=== PATIENT | female | born 1990 | race Caucasian/White ===

== ENCOUNTER 2017-09-14 02:27 | Inpatient (IN) | payer OTHER ==
[2017-09-14 03:00] LABS: APPEARANCE,URINE CLEAR; BILIRUBIN,URINE NEGATIVE (NEGATIVE); COLOR,URINE STRAW; GLUCOSE, URINE NEGATIVE (NEGATIVE); KETONES,URINE NEGATIVE (NEGATIVE); LEUKOCYTE ESTERASE,URINE SMALL (NEGATIVE); NITRITE,URINE NEGATIVE (NEGATIVE); PROTEIN,URINE NEGATIVE (NEGATIVE); URINE SPECIFIC GRAVITY 1.008; UROBILINOGEN,URINE NEGATIVE mg/dL (<2.0)
[2017-09-14] MEDS ORDERED: RINGERS SOLUTION,LACTATED 1,000 ML IV ONE (03:01)
[2017-09-14] MEDS ORDERED: RINGERS SOLUTION,LACTATED 1,000 ML IV PRN (03:01)
[2017-09-14] MEDS ORDERED: BUPIVACAINE HCL 0.25 % INJ/PF (2.5 MG/1 ML) 30 ML VIAL INFIL ONE (03:02)
[2017-09-14] MEDS ORDERED: BENZOIN/ALOE VERA/STORAX/TOLU TINCTURE 60 ML TP PRN (03:02)
[2017-09-14] MEDS ORDERED: FENTANYL/BUPIVACAINE/NS/PF 200 MCG/100 ML RTUINJ EPI PRN (03:02)
[2017-09-14] MEDS ORDERED: EPHEDRINE SULFATE INJ 50 MG/1 ML AMPULE ONE (03:16)
[2017-09-14] MEDS ORDERED: MISOPROSTOL 0.2 MG TABLET ONE (03:16)
[2017-09-14 03:17] LABS: URINE AMPHETAMINES SCREEN NEGATIVE; URINE BARBITURATES SCREEN NEGATIVE; URINE BENZODIAZEPINES SCREEN NEGATIVE; URINE COCAINE SCREEN NEGATIVE; URINE MARIJUANA (THC) SCREEN NEGATIVE; URINE METHADONE SCREEN NEGATIVE; URINE PHENCYCLIDINE SCREEN NEGATIVE
[2017-09-14] MEDS ORDERED: LIDOCAINE 1% INJ-PF (10 MG/ML) 30 ML SDV ONE (03:17)
[2017-09-14] MEDS ORDERED: OXYTOCIN/NORMAL SALINE 20 UNIT/1,000 ML RTUINJ ONE (03:17)
[2017-09-14] MEDS ORDERED: BUPIVACAINE HCL 0.25 % INJ/PF (2.5 MG/1 ML) 30 ML VIAL ONE (03:17)
[2017-09-14] MEDS ORDERED: FENTANYL/BUPIVACAINE/NS/PF 200 MCG/100 ML RTUINJ EPI ONE (03:17)
[2017-09-14 03:35] LABS: ABSOLUTE EOSINOPHILS # (AUTO) 0.1 10^3/uL (0.0-0.6); ABSOLUTE LYMPHOCYTES (AUTO) 3.6 10^3/uL (0.5-4.7); ABSOLUTE MONOCYTES (AUTO) 0.8 10^3/uL (0.1-1.4); ABSOLUTE NEUT (AUTO) 10.4 10^3/uL (1.7-8.2); BASOPHILS % (AUTO) 0.2 % (0-2); EOSINOPHILS % (AUTO) 0.5 % (0-6); HEMOGLOBIN 12.4 g/dL (12.0-15.5); LYMPHOCYTES % (AUTO) 24.2 % (13-45); MEAN CORPUSCULAR HEMOGLOBIN 29.1 pg (27.0-33.4); MEAN CORPUSCULAR HGB CONC 34.5 g/dL (32.0-36.0); MEAN CORPUSCULAR VOLUME 84 fl (80-97); MONOCYTES % (AUTO) 5.1 % (3-13); PLATELET COUNT 213 10^3/uL (150-450); RED BLOOD COUNT 4.26 10^6/uL (3.72-5.28); RED CELL DISTRIBUTION WIDTH 13.1 % (11.5-14.0); TOTAL CELLS COUNTED % (AUTO) 100 %; WHITE BLOOD COUNT 14.9 10^3/uL (4.0-10.5)
[2017-09-14] MEDS ORDERED: DIPH/PERTUSS(ACELL)/TETANUS VAC/PF 0.5 ML SYR (>=10YO) IM PRN (07:51)
[2017-09-14] MEDS ORDERED: DIPHENHYDRAMINE HCL 25 MG CAPSULE PO PRN (07:51)
[2017-09-14] MEDS ORDERED: HYDROCODONE/ACETAMINOPHEN 5-325 MG TABLET PO PRN (07:51)
[2017-09-14] MEDS ORDERED: ACETAMINOPHEN WITH CODEINE #3 TABLET PO PRN (07:51)
[2017-09-14] MEDS ORDERED: GLYCERIN/WITCH HAZEL LEAF 1 EACH MED..PAD TP PRN (07:51)
[2017-09-14] MEDS ORDERED: BENZOCAINE/MENTHOL AEROSOL SPRAY 56 ML TOP PRN (07:51)
[2017-09-14] MEDS ORDERED: MEASLES,MUMPS&RUBELLA VACC/PF 0.5 ML VIAL SUBCUT PRN (07:51)
[2017-09-14] MEDS ORDERED: PSEUDOEPHEDRINE HCL 30 MG TABLET PO PRN (07:51)
[2017-09-14] MEDS ORDERED: PROMETHAZINE HCL INJ 25 MG/1 ML VIAL IV PRN (07:51)
[2017-09-14] MEDS ORDERED: ZOLPIDEM TARTRATE 5 MG TABLET PO PRN (07:51)
[2017-09-14] MEDS ORDERED: PROMETHAZINE HCL 25 MG SUPP.RECT PR PRN (07:51)
[2017-09-14] MEDS ORDERED: ACETAMINOPHEN 650 MG SUPP.RECT PR PRN (07:51)
[2017-09-14] MEDS ORDERED: DIBUCAINE 1% OINTMENT 28 GM TP PRN (07:51)
[2017-09-14] MEDS ORDERED: NA PHOS,M-B/NA PHOS,DI-BA (ADULT) 133 ML ENEMA PR PRN (07:51)
[2017-09-14] MEDS ORDERED: PROMETHAZINE HCL 25 MG TABLET PO PRN (07:51)
[2017-09-14] MEDS ORDERED: MAGNESIUM HYDROXIDE SUSP 30 ML UDCUP PO PRN (07:51)
[2017-09-14] MEDS ORDERED: OXYTOCIN/NORMAL SALINE 20 UNIT/1,000 ML RTUINJ IV PRN (07:51)
[2017-09-14] MEDS ORDERED: DIPHENHYDRAMINE HCL 50 MG/ML VIAL IV ONE (08:17)
[2017-09-14] MEDS ORDERED: DIPHENHYDRAMINE HCL 25 MG CAPSULE ONE (08:22)
[2017-09-14] MEDS ORDERED: ONDANSETRON HCL INJ/PF 4 MG/2 ML SDV ONE (09:52)
--- NOTE | 2017-09-14 10:58 | Admission Physical ---
Datetime Report Generated by CPN: 09/14/2017 10:58 CURRENT ADMISSION Chief Complaint: Uterine Contractions Indication for Induction: Not Applicable Indication for Induction: Term, Intrauterine Admit Plan: Initiate Labor Protocol ALLERGIES Medication Allergies: No Medication Allergies: No Known Allergies (09/14/2017) Latex: No Latex Allergies Food Allergies: N/A Environmental Allergies: N/A OBSTETRICAL HISTORY EDC: 09/19/2017 00:00 : 2 Para: 1 Term: 1 : 0 SAB: 0 IAB: 0 Ectopic: 0 Livin Cesareans: 0 VBACs: 0 Multiple Births: 0 Gestational Diabetes: No Rh Sensitization: No Incompetent Cervix: No JOHN: No Infertility: No ART Treatment: No Uterine Anomaly: No IUGR: No Hx Previous C/S: No Macrosomia: No Hx Loss/Stillborn: No PIH: No Hx : No Placenta Previa/Abruption: No Depression/PP Depression: No PTL/PROM: No Post Hemorrhage: No Current Procedures: Ultrasound; NST Obstetrical History Comments: G1- epidural 2013 G2- current SEE RECORDS Alcohol: No Marijuana : No Cocaine: No Other Illicit Drugs: No Cigarettes: Never Smoker. 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 Surgery: No Heart Disease: No Hosp/Surgery: No Autoimmune Disorder: No Anesthetic Complications: No Kidney Disease: No Abnormal Pap Smear: No Neuro/Epilepsy: No Psychiatric Disorders: No Other Medical Diseases: No Hepatitis/Liver Disease: No Significant Family History: No Varicosities/Phlebitis: No Trauma/Violence : No Thyroid Dysfunction: No Medical History Comments: breast augmentation INFECTIOUS HISTORY Gonorrhea: No Genital Herpes: No Chlamydia: No Tuberculosis: No Syphilis: No Hepatitis: No HIV/AIDS Exposure: No Rash or Viral Illness: No HPV: No PHYSICAL EXAM General: Normal HEENT: Normal Neurologic: Normal Thyroid: Normal Heart: Normal Lungs: Normal Breast: Deferred Back: Normal Abdomen: Normal Genitourinary Exam: Normal Extremities: Normal DTRs: Normal Pelvic Type: Adequate Vital Signs: Reviewed VAGINAL EXAM Dilatation: 4 MEMBRANES Pooling: Negative Membranes: Intact FETUS A EGA: 39.2 Monitoring: External US PLANS FOR LABOR AND DELIVERY Labor and Delivery: None Pain Management: Epidural Feeding Preference: Formula Benefit of Breast Feed Discussed: Yes Circumcision: N/A INFORMED CONSENT Signature: with User ID: [email or web address]
[2017-09-14] MEDS: FERROUS SULFATE 325 MG TABLET PO SCH ×2 (13:17→17:46)
[2017-09-14] MEDS: PRENATAL VITAMIN W DHA CAPSULE PO SCH (13:17)
[2017-09-14] MEDS: FAMOTIDINE 20 MG TABLET PO SCH ×2 (13:17→21:33)
[2017-09-14] MEDS: SENNOSIDES/DOCUSATE 8.6-50 MG 1 EACH TABLET PO SCH (13:17)
[2017-09-14] MEDS: DOCUSATE SODIUM 100 MG CAPSULE PO SCH ×2 (13:17→17:46)
[2017-09-14] MEDS: IBUPROFEN 800 MG TABLET PO SCH ×2 (14:03→21:33)
[2017-09-15] MEDS: IBUPROFEN 800 MG TABLET PO SCH ×3 (05:15→22:19)
--- NOTE | 2017-09-15 07:48 | Delivery Summary ---
Del Sum A-C Datetime Report Generated by CPN: 09/15/2017 07:48 DELIVERY PERSONNEL DELIVERY PERSONNEL: [id number] Delivery Doctor:: Beka Payne MD Labor and Delivery Nurse:: DANICA Riley Labor and Delivery Nurse:: Genet Ortiz RN Crop Farm Helper/AUTOMOBILE TESTER: Karolina BlountCARLOS II Crop Farm Helper/AUTOMOBILE TESTER: Genet Layne, MEDIA CENTER DIRECTOR SCHOOL MATERNAL INFORMATION Delivery Anesthesia: Epidural Medications After Delivery: Pitocin Bolus-Please Comment; Pitocin Drip 20 Units/1000ml NSS Estimated Blood Loss (ml): 150 Maternal Complications: None Provider Comments: viable female 7:28am apgars 9/9 intact placenta with 3 vessel cord LABOR SUMMARY EDC: 09/19/2017 00:00 No. Babies in Womb: 1 Attempted: No Labor Anesthesia: Epidural LABOR INFORMATION Reason for Induction: Not Applicable Onset of Labor: 09/13/2017 23:00 Complete Dilatation: 09/14/2017 06:37 Oxytocin: N/A Group B Beta Strep: Negative Antibiotics # of Doses: 0 Steroids Given: None Reason Steroids Not Administered: Not Applicable MEMBRANES Membranes Rupture Method: Spontaneous Rupture of Membranes: 09/14/2017 06:29 Length of Rupture (hr): 0.98 Amniotic Fluid Color: Clear Amniotic Fluid Amount: Small STAGES OF LABOR Stage 1 hr: 7 Stage 1 min: 37 Stage 2 hr: 0 Stage 2 min: 51 Stage 3 hr: 0 Stage 3 min: 2 Total Time in Labor hr: 8 Total Time in Labor min: 30 VAGINAL DELIVERY Episiotomy: None Laceration #1: None Laceration Extension #1: N/A Laceration Repair: Not Applicable Sponge Count Correct: N/A Sharps Count Correct: N/A BABY A INFORMATION Delivery Date/Time: 09/14/2017 07:28 Method of Delivery: Vaginal Method of Delivery: Vaginal Born in Route : No : N/A Forceps: N/A Vacuum Extraction: N/A Shoulder Dystocia : No PRESENTATION/POSITION BABY A Presentation: Cephalic Cephalic Presentation: N/A Vertex Position: Left Occipital Anterior Breech Presentation: N/A PLACENTA INFORMATION BABY A Placenta Delivery Time : 09/14/2017 07:30 Placenta Method of Delivery: Spontaneous Placenta Method of Delivery: Spontaneous Placenta Status: Delivered SCORES BABY A Heart Rate 1 min: >100 bpm Resp Effort 1 min: Good Cry Reflex Irritability 1 min: Cough or Sneeze or Pulls Away Muscle Tone 1 min: Active Motion Color 1 min: Body [place], Extremities Blue Resuscitation Effort 1 min: Tactile Stimulation SCORE 1 MIN: 9 Heart Rate 5 min: >100 bpm Resp Effort 5 min: Good Cry Reflex Irritability 5 min: Cough or Sneeze or Pulls Away Muscle Tone 5 min: Active Motion Color 5 min: Body [place], Extremities Blue Resuscitation Effort 5 min: Tactile Stimulation SCORE 5 MIN: 9 INFANT INFORMATION BABY A Gestational Age at Delivery: 39.2 Gestational Status: Full Term- 39- 40.6 Weeks Infant Outcome : Liveborn Condition : Stable Sex: Female Infant Sex: Female IDENTIFICATION BABY A Verification Date/Time: 09/14/2017 08:25 ID Band Number: [id number] Mother's Name Verified: Yes RN Verifying Infant: K PANCHITO, RNC Additional Verifying Personnel: QUEENIE POLANCO, RN WEIGHT/LENGTH BABY A Birthweight (gm): 3160 Weight (lb): 6 Weight (oz): 15 Length (in): 19.00 Infant Length (cm): 48.26 CORD INFORMATION BABY A No. Cord Vessels: 3 Nuchal Cord : Around Neck x1, Loose Cord Blood Taken: Yes-For Storage (Mom's Blood type +) Suction: Mouth ASSESSMENT BABY A Infant Complications: None Physical Findings at Delivery: Within Normal Limits Infant Respirations: Appears Normal Skin to Skin: Yes Dairy Laboratory Technician/ALS Called : No Care By: DANICA MAGAÑA Transferred To: Remains with Mother BABY B INFORMATION : N/A SIGNATURES Signature: with User ID: [email or web address]
[2017-09-15 08:20] LABS: HEMATOCRIT 33.5 % (36.0-47.0); HEMOGLOBIN 11.4 g/dL (12.0-15.5); MEAN CORPUSCULAR HEMOGLOBIN 29.5 pg (27.0-33.4); MEAN CORPUSCULAR VOLUME 87 fl (80-97); PLATELET COUNT 182 10^3/uL (150-450); RED BLOOD COUNT 3.87 10^6/uL (3.72-5.28); RED CELL DISTRIBUTION WIDTH 13.6 % (11.5-14.0); WHITE BLOOD COUNT 12.2 10^3/uL (4.0-10.5)
[2017-09-15] MEDS: FERROUS SULFATE 325 MG TABLET PO SCH ×2 (09:08→17:24)
[2017-09-15] MEDS: DOCUSATE SODIUM 100 MG CAPSULE PO SCH ×2 (09:08→17:24)
[2017-09-15] MEDS: PRENATAL VITAMIN W DHA CAPSULE PO SCH (09:09)
[2017-09-15] MEDS: FAMOTIDINE 20 MG TABLET PO SCH ×2 (09:09→22:19)
[2017-09-15] MEDS: SENNOSIDES/DOCUSATE 8.6-50 MG 1 EACH TABLET PO SCH (09:09)
--- NOTE | 2017-09-15 09:42 | PDOC PROGRESS REPORT ---
Subjective-OB Subjective: Post Delivery Day: 26 year old. Denies any needs at this time Physical Exam (OB) Vital Signs: Temp Pulse Resp BP Pulse Ox 98.2 F 61 16 119/74 100 09/15/17 08:30 09/15/17 08:30 09/15/17 08:30 09/15/17 08:30 09/15/17 08:30 Intake & Output 09/14/17 09/15/17 09/16/17 06:59 06:59 06:59 Weight 80.9 kg - PIH/Pre-Eclampsia Clonus: Negative - Lochia Lochia Amount: Small 10-25 ml Lochia Color: Rubra/Red - Abdomen Description: Tender, Soft Hernia Present: No Bowel Sounds: Normoactive Flatus Presence: Present Stool: No Fundal Description: Firm, Midline Fundal Height: u/u - u/2 Objective-Diagnostic Laboratory: 09/15/17 07:46 09/15/17 07:46 WBC 12.2 H RBC 3.87 Hgb 11.4 L Hct 33.5 L MCV 87 MCH 29.5 MCHC 34.0 RDW 13.6 Plt Count 182
[2017-09-15] MEDS: ACETAMINOPHEN WITH CODEINE #3 TABLET PO PRN (20:27)
[2017-09-16] MEDS: ACETAMINOPHEN WITH CODEINE #3 TABLET PO PRN (04:03)
[2017-09-16] MEDS: IBUPROFEN 800 MG TABLET PO SCH (05:04)
--- NOTE | 2017-09-16 09:16 | PDOC PROGRESS REPORT ---
Subjective-OB Subjective: Post Delivery Day: 26 year old. Denies any needs at this time Doing well, ready to go home, hsb in room holding baby, bottle feeding, wearing bra Physical Exam (OB) Vital Signs: Temp Pulse Resp BP Pulse Ox 97.7 F 57 L 15 113/73 100 09/16/17 07:25 09/16/17 07:25 09/16/17 07:25 09/16/17 07:25 09/16/17 07:25 Intake & Output 09/15/17 09/16/17 09/17/17 06:59 06:59 06:59 Intake Total 120 Balance 120 Weight 80.9 kg - PIH/Pre-Eclampsia Clonus: Negative Headache: Absent Epigastric Pain: No Visual Changes: No - Lochia Lochia Amount: Scant < 10 ml Lochia Color: Rubra/Red - Abdomen Description: Soft, Round Hernia Present: No Fundal Description: Firm Fundal Height: u/u - u/2 Objective-Diagnostic Laboratory: 09/15/17 07:46 Assessment and Plan(PN) - Assessment and Plan (1) Depression with anxiety Is this a current diagnosis for this admission?: Yes (2) Delivery normal Is this a current diagnosis for this admission?: Yes (3) Qualifiers: Weeks of gestation: 39 weeks Qualified Code(s): Z3A.39 - 39 weeks gestation of Is this a current diagnosis for this admission?: Yes - Time Spent with Patient Time with patient: Less than 15 minutes Medications reviewed and adjusted accordingly: Yes - Disposition Anticipated Discharge: Home Within: Other - home today
--- NOTE | 2017-09-16 09:20 | PDOC DISCHARGE SUMMARY ---
Final Diagnosis Discharge Date: 09/16/17 - Final Diagnosis (1) Depression with anxiety Is this a current diagnosis for this admission?: Yes (2) Delivery normal Is this a current diagnosis for this admission?: Yes Discharge Data - Discharge Medication Home Medications: Ondansetron HCl [Zofran 4 mg Tablet] 1 tab PO TID PRN 09/14/17 Prenat 115/Iron Fum/Folic/Dss [ 19 Tablet] 1 tab PO DAILY 09/14/17 Gestational Age: 39.2 Reason(s) for Admission: Onset of Labor Procedures: NST, Ultrasound Intrapartum Procedure(s): Spontaneous Vaginal Delivery - [place] Data Baby 1 Female at 1 minute: 9 at 5 minutes: 9 Weight: 3.147 kg Home with Mother: Yes Complications: No - Diagnosis Test Laboratory: Temp Pulse Resp BP Pulse Ox 97.7 F 57 L 15 113/73 100 09/16/17 07:25 09/16/17 07:25 09/16/17 07:25 09/16/17 07:25 09/16/17 07:25 09/14/17 09/14/17 09/15/17 02:37 03:14 07:46 RBC 4.26 3.87 Hgb 12.4 11.4 L Hct 36.0 33.5 L Urine Opiates Screen NEGATIVE - Discharge information/Instructions Discharge Activity: Activity As Tolerated, No Lifting Over 10 Pounds, No Lifting /Push/Pulling Discharge Diet: As Tolerated, Regular Disposition: HOME, SELF-CARE Follow up with: [facility] in: 4, Weeks
[2017-09-16 09:55] VITALS: BP 123/70
[2017-09-16] MEDS: DOCUSATE SODIUM 100 MG CAPSULE PO SCH (10:22)
[2017-09-16] MEDS: FAMOTIDINE 20 MG TABLET PO SCH (10:22)
[2017-09-16] MEDS: SENNOSIDES/DOCUSATE 8.6-50 MG 1 EACH TABLET PO SCH (10:22)
[2017-09-16] MEDS: FERROUS SULFATE 325 MG TABLET PO SCH (10:22)
[2017-09-16] MEDS: PRENATAL VITAMIN W DHA CAPSULE PO SCH (10:22)
== END 2017-09-16 11:14 | disposition home or self-care (01) | DRG 775 ==
LOC: LC 02:27 → LR 02:57 → 2S 10:54
PROVIDERS: ADMIT Obstetrics & Gynecology Gynecology; ATTEND Obstetrics & Gynecology Gynecology
PROC: 10E0XZZ Delivery of Products of Conception, External Approach (ICD-10-PCS; principal; 2017-09-14)
PROC: 4A1HXCZ Monitoring of Products of Conception, Cardiac Rate, External Approach (ICD-10-PCS; 2017-09-14)
DX: O69.81X0 Labor and delivery complicated by cord around neck, without compression, not applicable or unspecified (principal); O99.344 Other mental disorders complicating childbirth; F41.8 Other specified anxiety disorders; Z3A.39 39 weeks gestation of pregnancy; Z37.0 Single live birth
CPT/HCPCS: 36415; 80307; 81005; 85025; 85027; 86592; 86850; 86900; 86901; 90707; 94760; J2405; J2590; J3490

== ENCOUNTER 2019-08-15 08:57 | Emergency (ER) | payer OTHER ==
[2019-08-15 09:02] VITALS: BP 131/81
[2019-08-15] MEDS ORDERED: TETRACAINE HCL 0.5% OPH SOLN 4 ML OU ONE (10:16)
[2019-08-15] MEDS ORDERED: ERYTHROMYCIN 0.5% OPH OINT 1 GM UNIT DOSE OS ONE (10:30)
--- NOTE | 2019-08-15 10:35 | ER Document Report ---
HPI - HPI Patient complains to provider of: Bilateral eye irritation Time Seen by Provider: 08/15/19 10:15 Onset: Other - Week Onset/Duration: Persistent Pain Level: 5 Context: 28-year-old female with no past medical history presents emergency department with reports of bilateral eye irritation for the past week. She reports she did have her contacts and she remove them 4 to 5 days ago. She reports her eyes were irritated first. Yesterday she started having blurry vision and very sensitive to light. Reports clear drainage. She reports the left feels worse than the right. No other complaint such as fever vomiting diarrhea. Associated Symptoms: None Exacerbated by: Denies Relieved by: Denies Similar symptoms previously: No Recently seen / treated by doctor: No - EENT EENT: REPORTS: Eye problems - REPRODUCTIVE Reproductive: DENIES: : Past Medical History - General Information source: Patient - Social History Smoking Status: Never Smoker Frequency of alcohol use: None Drug Abuse: None Lives with: Family Family History: None Patient has suicidal ideation: No Patient has homicidal ideation: No - Medical History Medical History: Negative Surgical Hx: Negative Vertical Provider Document - CONSTITUTIONAL Agree With Documented VS: Yes Exam Limitations: No Limitations General Appearance: WD/WN, No Apparent Distress - INFECTION CONTROL TRAVEL OUTSIDE OF THE [place] IN LAST 30 DAYS: No - HEENT HEENT: Conjuctival Injection, PERRLA. negative: Atraumatic, Normocephalic - NECK Neck: Supple - RESPIRATORY Respiratory: No Respiratory Distress - CARDIOVASCULAR Cardiovascular: Regular Rate - MUSCULOSKELETAL/EXTREMETIES Musculoskeletal/Extremeties: MAEW, FROM - NEURO Level of Consciousness: Awake, Alert, Appropriate Motor/Sensory: No Motor Deficit - DERM Integumentary: Warm, Dry Course - Re-evaluation Re-evalutation: 08/15/19 10:41 28-year-old female presents with bilateral eye irritation that started approximately 1 week ago. She removed her contacts 4 to 5 days ago has been wearing her regular glasses since that time. Patient reports she has been using allergy eyedrops for the irritation without relief of symptoms. Denies new contacts. Is unsure of any allergies. Reports she just started using a new shampoo possible allergy to that. No other complaints. Eye exam completed patient received tetracaine in both eyes and did feel some relief able to open her eyes after applying the tetracaine. Right eye is benign. Small fluorescein uptake in the left eye tear. Patient was prescribed erythromycin ophthalmic oin tment. She was instructed on signs and symptoms of allergic reaction to this. She was instructed on the importance of follow-up with the car oiler within the week. 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 She was also instructed to return to the emergency department for worsening symptoms concerns pain. She verbalized understanding to all instructions. - Vital Signs Vital signs: Temp Pulse Resp BP Pulse Ox 98.3 F 77 20 131/81 H 99 08/15/19 08:59 08/15/19 08:59 08/15/19 08:59 08/15/19 08:59 08/15/19 08:59 Procedures - Eye Procedure Bilateral Time completed: 10:38 Eye Irrigated w/ Saline (ccs): 20 Alcaine Drops Administered: Yes - tetracaine Fluorescein applied: Bilateral Antibiotic Oinment/Drps Admin: Left eye Notes: 08/15/19 10:39 batista lamp utilized, tetracaine applied to both eyes. Patient reports relief after a few seconds able to open her eyes wide. Eyes picture: 1 - Fluorescein uptake Discharge - Discharge Clinical Impression: Irritation of both eyes Abrasion of left conjunctiva Qualifiers: Encounter type: initial encounter Qualified Code(s): S05.02XA - Injury of conjunctiva and corneal abrasion without foreign body, left eye, initial encounter Condition: Stable Disposition: HOME, SELF-CARE Instructions: Erythromycin ([facility]), Eyedrop Use ([facility]) Additional Instructions: *You have been evaluated for eye irritation, conjunctival abrasion *Apply eye ointment as prescribed half inch ribbon to the bottom of the left eye lid 3 times a day for the next 3 days *Good hand washing- Do not reuse wash clothes or towels after wiping eyes *Follow up with an car oiler within 1 week *Return to ED for worsening condition, changes, needs, decreased vision, concerns Monitor your blood pressure. Your blood pressure was elevated today. This may be because you were anxious, in pain or because you need medication. It is important to follow up with your primary care provider for full evaluation. Forms: Elevated Blood Pressure Referrals: PHIL REYES PA-C [Primary Care Provider] - Follow up in 3-5 days
== END 2019-08-15 10:45 | disposition home or self-care (01) ==
LOC: ER 08:57
DX: S05.02XA Injury of conjunctiva and corneal abrasion without foreign body, left eye, initial encounter (principal); X58.XXXA Exposure to other specified factors, initial encounter; H53.8 Other visual disturbances; H53.149 Visual discomfort, unspecified
CPT/HCPCS: 99283